=== PATIENT | male | born 1980 | race Caucasian/White ===

== ENCOUNTER 2016-07-21 10:55 | Emergency (ER) | payer OTHER ==
[~2016-07-21] VITALS: Ht 177.8 cm; Wt 105.6 kg
[2016-07-21] MEDS ORDERED: ULTRAM50 MG PO (13:04)
[2016-07-21 13:21] VITALS: BP 189/115
== END 2016-07-21 13:23 | disposition home or self-care (01) ==
LOC: EME 10:55
DX: S46.912A Strain of unspecified muscle, fascia and tendon at shoulder and upper arm level, left arm, initial encounter (principal); X50.9XXA Other and unspecified overexertion or strenuous movements or postures, initial encounter; E11.9 Type 2 diabetes mellitus without complications; I10 Essential (primary) hypertension
CPT/HCPCS: 73030; 99281; 99283